=== PATIENT | female | born 1965 | race Caucasian/White ===

== ENCOUNTER 2018-06-25 00:18 | Inpatient (IN) | payer MEDICAID, OTHER ==
[2018-06-25] VITALS (7 sets, daily range): BP systolic 105–137; BP diastolic 59–70; PULSE 79–115; RESP 18; Ht 157.5 cm; Wt 65.8 kg
[~2018-06-25] VITALS: Ht 157.5 cm; Wt 65.8 kg
--- NOTE | 2018-06-25 00:37 | ERD ---
ER Documentation Chief Complaint Chief Complaint fever/cough/sore throat x 3 days HPI The patient is a 52-year-old female, presenting to the ER because of fever, cough, nasal congestion, nasal discharge, general body pain for the last 2-3 days. She denies headache, facial pain, neck pain, chest pain, dyspnea, complains of right upper quadrant pain, denies nausea, vomiting, dizzy, diarrhea. She does not smoke nor drink Past medical history: Diabetes mellitus, hypertension Past surgical history: Hysterectomy ROS All systems reviewed and are negative except as per history of present illness. Allergies Allergies: Coded Allergies: No Known Drug Allergies (Verified Allergy, Unknown, 06/25/18) Physical Exam Vitals Vital Signs Date Temp Pulse Resp B/P (MAP) Pulse Ox O2 O2 Flow FiO2 Time Delivery Rate 06/25/18 99.2 109 24 118/67 99 Room Air 02:51 (84) 06/25/18 116 14 142/66 Room Air 01:15 (91) 06/25/18 103.4 131 20 161/83 97 00:30 (109) Physical Exam Const: No acute distress. Head: Atraumatic. Eyes: Normal Conjunctiva. ENT: Normal External Ears, Nose and Mouth. Neck: Full range of motion. No meningismus. Resp: Clear to auscultation bilaterally.tachypneic Cardio: Regular tachycardic Abd: Soft, non distended, normal bowel sounds, mild right upper quadrant tenderness, no right lower quadrant, epigastric, rigidity, rebound or CVA tenderness Skin: No petechiae or rashes. Back: No midline or flank tenderness. Ext: No cyanosis, or edema. Neur: Awake and alert. No focal deficit Psych: Normal Mood and Affect. Result Diagram: 06/25/18 0050 06/25/18 0050 Results 24 hrs Laboratory Tests Test 06/25/18 00:48 06/25/18 00:50 06/25/18 00:52 06/25/18 01:01 Urine Color YELLOW Urine Clarity SLIGHTLY CLOUDY Urine pH 5.0 Urine Specific 1.023 [place] Urine Ketones 1+ mg/dL Urine Nitrite NEGATIVE mg/dL Urine Bilirubin NEGATIVE mg/dL Urine Urobilinogen NEGATIVE mg/dL Urine Leukocyte NEGATIVE Anmol/ul Esterase Urine Microscopic 1 /HPF RBC Urine Microscopic 1 /HPF WBC Urine Squamous FEW /HPF Epithelial Cells Urine Bacteria FEW /HPF Urine Hemoglobin 1+ mg/dL Urine Glucose 3+ mg/dL Urine Total NEGATIVE mg/dl Protein White Blood Count 12.1 10^3/ul Red Blood Count 4.97 10^6/ul Hemoglobin 12.7 g/dl Hematocrit 40.2 % Mean Corpuscular 80.9 fl Volume Mean Corpuscular 25.6 pg Hemoglobin Mean Corpuscular 31.6 g/dl Hemoglobin Concent Red Cell 14.6 % Distribution Width Platelet Count 171 10^3/UL Mean Platelet 13.0 fl Volume Immature 0.600 % Granulocytes % Neutrophils % 73.6 % Lymphocytes % 16.8 % Monocytes % 8.2 % Eosinophils % 0.6 % Basophils % 0.2 % Nucleated Red 0.0 /100WBC Blood Cells % Immature 0.070 10^3/ul Granulocytes # Neutrophils # 8.9 10^3/ul Lymphocytes # 2.0 10^3/ul Monocytes # 1.0 10^3/ul Eosinophils # 0.1 10^3/ul Basophils # 0.0 10^3/ul Nucleated Red 0.0 10^3/ul Blood Cells # Prothrombin Time 13.2 Sec Prothrombin Time 1.0 Ratio INR International 0.99 Normalized Ratio Activated 28.[address] Time Sodium Level 134 mmol/L Potassium Level 4.0 mmol/L Chloride Level 97 mmol/L Carbon Dioxide 23 mmol/L Level Anion Gap 14 Blood Urea 10 mg/dl Nitrogen Creatinine 0.48 mg/dl Est Glomerular > 60 mL/min Filtrat Rate mL/min Glucose Level 323 mg/dl Calcium Level 9.6 mg/dl Total Bilirubin 0.2 mg/dl Direct Bilirubin 0.00 mg/dl Indirect Bilirubin 0.2 mg/dl Aspartate Amino 50 IU/L Transf (AST/SGOT) Alanine 49 IU/L Aminotransferase ( ALT/SGPT) Alkaline 74 IU/L Phosphatase Troponin I < 0.012 ng/ml Total Protein 8.5 g/dl Albumin 4.6 g/dl Globulin 3.90 g/dl Albumin/Globulin 1.17 Ratio POC Venous Lactate 2.9 mmol/L Bedside Urine pH 6.0 (LAB) Bedside Urine 1+ Protein (LAB) Bedside Urine 0.50% Glucose (UA) Bedside Urine 2+ Ketones (LAB) Bedside Urine Trace-intact Blood Bedside Urine Negative Nitrite (LAB) Bedside Urine Negative Leukocyte Esterase (L Test 06/25/18 01:06 4/6/19 02:37 POC Beta HCG, NEGATIVE Qualitative POC Venous Lactate 2.8 mmol/L Current Medications Medications Dose Sig/[place] Start Time Status Last (Trade) Ordered Route PRN Stop Time Admin Dose Reason Admin Sodium 1,910 ml @ BOLUS X1 06/25/18 DC 06/25/18 Chloride 1,910 mls/hr ONCE IV 01:00 06/25/18 00:59 01:59 650 mg ONCE ONCE 06/25/18 DC 06/25/18 Acetaminophen PO 01:00 06/25/18 00:59 (Tylenol 01:01 Tab) Ibuprofen 600 mg ONCE ONCE 06/25/18 DC 06/25/18 (Motrin) PO 01:30 06/25/18 01:34 01:31 Ceftriaxone 50 ml @ ONCE ONCE 06/25/18 DC 06/25/18 Sodium 100 mls/hr IVPB 02:00 06/25/18 01:53 02:29 Oseltamivir 75 mg ONCE ONCE 06/25/18 DC 06/25/18 Phosphate PO 02:00 06/25/18 01:52 (Tamiflu) 02:01 Procedures/[place] [address] Radiology Main Line: [phone] DIAGNOSTIC IMAGING REPORT Patient: MARU BELTRAN : 1965 Age: 52 Sex: F MR #: [id number] DOS: 06/25/18 0103 Ordering MD: ZAYRA SILVA MD Location: E/R Room/Bed: PROCEDURE: US abdomen limited right upper quadrant. CLINICAL INDICATION: Abdominal pain TECHNIQUE: Multiple real-time images were acquired of the patient's right upper quadrant of the abdomen utilizing a high resolution transducer. COMPARISON: None FINDINGS: Gallbladder is mildly contracted. No gallstones are identified within the gallbladder. There is no pericholecystic fluid or gallbladder wall thickening. The common bile duct measures 2.7 mm in maximal dimension. No free fluid is identified. Diffuse increased hepatic echogenicity most suggestive of hepatic steatosis. The length of the liver equals 19.4 cm consistent with hepatomegaly. There is hepatopetal portal venous flow. No abnormality seen in the pancreatic head or body. Pancreatic tail is not well seen due to bowel gas. The right kidney measures 10.8 cm in length and is unremarkable. IMPRESSION: Diffuse increased hepatic echogenicity most suggestive of hepatic steatosis. The length of the liver equals 19.4 cm consistent with hepatomegaly. Pancreatic tail not well seen. The gallbladder is mildly contracted. This is nonspecific and could be due to nonfasting state. Please see above RPTAT: HJES .Mukesh Bryant MD, Date Time Electronically viewed and signed by .Mukesh Bryant MD, on 06/25/2018 02:21 .S/ CC: ZAYRA SILVA MD [id number] [place] [address] Radiology Main Line: [phone] DIAGNOSTIC IMAGING REPORT Patient: MARU BELTRAN : 1965 Age: 52 Sex: F MR #: [id number] DOS: 06/25/18 0037 Ordering MD: ZAYRA SILVA MD Location: E/R Room/Bed: PROCEDURE: One view chest radiograph. CLINICAL INDICATION: Sepsis TECHNIQUE: An AP view of the chest was obtained. COMPARISON: None. FINDINGS: Mediastinum: Unremarkable. Heart size: Normal. Pulmonary vasculature: No visible engorgement. Lungs: Clear. Lung volumes are low. Costophrenic sulci: Clear. Bony structures: Grossly unremarkable for age. IMPRESSION: 1. Unremarkable single view chest. RPTAT:AAJJ Physician Afia Date Time Electronically viewed and signed by Physician Afia on 06/25/2018 01:37 GW/ CC: ZAYRA SILVA MD [id number] EKG: Read by emergency physician Rate/Rhythm: Sinus tachycardia 125 beats/min QRS, ST, T-waves: No ST elevation, no T inversion, LAE Impression: Abnormal EKG MEDICAL MAKING DECISION: The patient is a 52-year-old female, presenting with acute severe sepsis, acute influenza, acute hyperglycemia. She was treated with Tylenol and Motrin for fever, normosaline 30 mm/kg IV, Rocephin 1 g IV for acute severe sepsis, Tamiflu 75 mg p.o. for acute influenza with good response. Her vital signs improved The differential diagnoses considered include but are not limited to influenza, pneumonia, UTI, pyelonephritis, dehydration, HHS, DKA MDM: Patient's infectious symptoms have not stabilized and the patient is at risk of rapid decompensation. The patient will be admitted for careful hydration, antibiotic therapy, and infectious source control. SEVERE SEPSIS CRITERIA: Infectious source: unknown End organ damage indicated by: [Lactate > 2.0 mmol/L SEPSIS MANAGEMENT Time of recognition of severe sepsis: 1:40 am 3 HOUR BUNDLE Blood cultures x 2 before broad-spectrum antibiotics: [Yes] 30 ml/kg NS bolus [Completed] Initial lactate []2.9 Repeat lactate Pending SEPTIC SHOCK ASSESSMENT: [No] lactic acid > 4.0 [No] Persistent hypotension (SBP < 90 or 40 mmHg drop, MAP < 65) despite 30 mL/kg IV fluid bolus CRITICAL CARE Critical care time [35] minutes Emergent fluid management while maintaining close respiratory support. Provision of immediate and broad-spectrum antibiotic therapy. Simultaneous assessment for possible sources in order to direct targeted therapy. Consideration for invasive and chemical support to prevent cardiopulmonary collapse. Critical care time is independent of procedures performed. Departure Diagnosis: Primary Impression: Severe sepsis Additional Impressions: Influenza A Hyperglycemia Hepatic steatosis Condition: Stable Comments I discussed the findings with the patient. I discussed the patient with the hospitalist Dr Hurley at 3 am who was made aware of the lab, the treatment, the patient condition. The patient is admitted to [facility] Disclaimer: Inadvertent spelling and grammatical errors are likely due to EHR/dictation software use and do not reflect on the overall quality of patient care. Also, please note that the electronic time recorded on this note does not necessarily reflect the actual time of the patient encounter. ZAYRA SILVA MD Jun 25, 2018 00:37
[2018-06-25] MEDS ORDERED: SOD CHLORIDE 0.9% 1,910 ML IV ONE (01:00)
[2018-06-25] MEDS ORDERED: ACETAMINOPHEN 325 MG TAB PO ONE (01:00)
[2018-06-25] MEDS ORDERED: IBUPROFEN 600 MG TAB PO ONE (01:30)
[2018-06-25] MEDS ORDERED: CEFTRIAXONE 1 GM/50 ML (PMX) 50 ML IVPB ONE (02:00)
[2018-06-25] MEDS ORDERED: OSELTAMIVIR 75 MG CAP PO ONE (02:00)
[2018-06-25] MEDS: SOD CHLORIDE 0.9% 1,000 ML IV SCH ×2 (03:28→16:05)
[2018-06-25] MEDS ORDERED: ACETAMINOPHEN 325 MG TAB PO PRN (03:30)
[2018-06-25] MEDS ORDERED: LEVALBUTEROL (NEB) 1.25 MG/0.5 ML AMP HHN PRN (03:30)
[2018-06-25] MEDS ORDERED: NACL 0.9% 3 ML SYG IV SCH (03:30)
[2018-06-25] MEDS ORDERED: DOCUSATE SODIUM 100 MG CAP PO PRN (03:30)
[2018-06-25] MEDS ORDERED: ONDANSETRON 4 MG INJ IV PRN (03:30)
[2018-06-25] MEDS ORDERED: GUAIFENESIN/DM 5ML CUP PO PRN (03:30)
[2018-06-25] MEDS ORDERED: BISACODYL (EC) 5 MG TAB PO PRN (03:30)
[2018-06-25] MEDS ORDERED: GLUCOSE GEL 15 GRAM TUBE PO PRN ×2 (04:30)
[2018-06-25] MEDS ORDERED: GLUCOSE GEL 15 GRAM TUBE BUCCAL PRN (04:30)
[2018-06-25] MEDS ORDERED: DEXTROSE 50% 50 ML SYRINGE IV PRN ×2 (04:30)
[2018-06-25] MEDS ORDERED: GLUCAGON 1 MG INJ IM PRN (04:30)
[2018-06-25] MEDS: OSELTAMIVIR 75 MG CAP PO SCH ×2 (08:23→20:05)
[2018-06-25] MEDS: INSULIN ASPART [NOVOLOG] 3 ML PEN SC SCH ×6 (09:49→20:14)
--- NOTE | 2018-06-25 09:59 | PN ---
Date/Time of Note Date/Time of Note DATE: 06/25/18 TIME: 09:58 Assessment/Plan VTE Prophylaxis Pharmacological prophylaxis: LMWH Lines/Catheters IV [facility]from [facility] [place] Assessment/Plan Hospital Course SUBJECTIVE: Continues to have generalized body aches and throat pain. OBJECTIVE: Physical Exam General: Adequately build 52 year-old female lying in bed in no apparent distress. HEENT: Normocephalic, atraumatic. Eyes: Anicteric sclerae, conjunctivae clear. ENT: Nasal septum midline, oral mucosa moist. Tongue midline. Neck supple, no JVD noticed. Respiratory: Bilaterally clear breath sounds. No use of accessory muscles of respiration. No adventitious breath sounds. Cardiovascular: S1, S2 heard. Regular rate and rhythm. Abdomen: Soft, nontender, and nondistended. Bowel sounds positive in all 4 quadrants. Genitourinary: Deferred. Extremities: No cyanosis, no clubbing, no edema. Peripheral pulses palpable. Neurologic: Cranial nerves II through XII grossly intact. The patient is awake, alert, and oriented. Skin: Normal skin turgor. No skin rashes. Labs & Vitals per chart ASSESSMENT & PLAN This is a 52-year-old female with past medical history of diabetes mellitus type 2, hypertension, and hypothyroidism. The patient started having febrile illness for the past 2 days. The patient verbalized exposure to her niece who was having similar illness. The patient was complaining of generalized body aches and sore throat. The patient denied any nausea, vomiting, or diarrhea. In the emergency room at [facility], the patient was noticed to have a fever of 103.4 F. Patient had minimal leukocytosis. The patient had underlying lactic acidosis. The patient's influenza A swab was positive. The patient was treated with IV ceftriaxone and oral Tamiflu in the emergency room along with IV fluid resuscitation. 1. Sepsis with leukocytosis, tachycardia, febrile illness, and lactic acidosis, present on admission. -Most probably secondary to underlying influenza A. -Continue neuraminidase inhibitors. -Continue droplet precautions. -Continue IV fluids. 2. Influenza A. -Management as per #1. 3. Diabetes mellitus type 2. -Continue the patient on sliding scale insulin along with pre-meal insulin and basal insulin. -Hemoglobin A1C 10.0. 4. Essential hypertension -Continue antihypertensives. 5. Hypothyroidism. -Resume Synthroid. 6. Fluids, electrolytes, and nutrition. -Carbohydrate controlled diet. 7. DVT prophylaxis. -Subcutaneous Lovenox. 8. Plan. -Continue Tamiflu. -Continue IV fluids. -Await clinical improvement. The patient was seen in collaboration with Dr. Gerard. Result Diagram: 06/25/18 0050 06/25/1849 Results 24hrs Laboratory Tests Test 06/25/18 00:48 06/25/18 00:50 06/25/18 00:52 06/25/18 01:01 Urine Color YELLOW Urine Clarity SLIGHTLY CLOUDY A Urine pH 5.0 Urine Specific 1.023 [place] Urine Ketones 1+ H Urine Nitrite NEGATIVE Urine Bilirubin NEGATIVE Urine NEGATIVE Urobilinogen Urine Leukocyte NEGATIVE Esterase Urine Microscopic 1 RBC Urine Microscopic 1 WBC Urine Squamous FEW Epithelial Cells Urine Bacteria FEW A Urine Hemoglobin 1+ H Urine Glucose 3+ H Urine Total NEGATIVE Protein White Blood Count 12.1 H Red Blood Count 4.97 Hemoglobin 12.7 Hematocrit 40.2 Mean Corpuscular 80.9 L Volume Mean Corpuscular 25.6 L Hemoglobin Mean Corpuscular 31.6 L Hemoglobin Concen t Red Cell 14.6 H Distribution Width Platelet Count 171 Mean Platelet 13.0 H Volume Immature 0.600 H Granulocytes % Neutrophils % 73.6 Lymphocytes % 16.8 Monocytes % 8.2 Eosinophils % 0.6 Basophils % 0.2 Nucleated Red 0.0 Blood Cells % Immature 0.070 H Granulocytes # Neutrophils # 8.9 H Lymphocytes # 2.0 Monocytes # 1.0 H Eosinophils # 0.1 Basophils # 0.0 Nucleated Red 0.0 Blood Cells # Prothrombin Time 13.2 Prothrombin Time 1.0 Ratio INR International 0.99 Normalized Ratio Activated 28.2 Partial Thrombopl ast Time Sodium Level 134 L Potassium Level 4.0 Chloride Level 97 Carbon Dioxide 23 Level Anion Gap 14 H Blood Urea 10 Nitrogen Creatinine 0.48 Est Glomerular > 60 Filtrat Rate mL/min Glucose Level 323 H Calcium Level 9.6 Total Bilirubin 0.2 Direct Bilirubin 0.00 Indirect 0.2 Bilirubin Aspartate Amino 50 H Transf (AST/SGOT) Alanine 49 Aminotransferase (ALT/SGPT) Alkaline 74 Phosphatase Troponin I < 0.012 Total Protein 8.5 H Albumin 4.6 Globulin 3.90 H Albumin/Globulin 1.17 Ratio POC Venous 2.9 *H Lactate Bedside Urine pH 6.0 (LAB) Bedside Urine 1+ H Protein (LAB) Bedside Urine 0.50% H Glucose (UA) Bedside Urine 2+ H Ketones (LAB) Bedside Urine Trace-intact H Blood Bedside Urine Negative Nitrite (LAB) Bedside Urine Negative Leukocyte Esteras e (L Test 06/25/18 01:06 06/25/18 02:37 06/25/18 07:53 06/25/18 08:02 POC Beta HCG, NEGATIVE Qualitative POC Venous 2.8 *H Lactate Lactic Acid Level 2.2 *H Bedside Glucose 215 Exam/Review of Systems Exam Vitals Vital Signs Date Temp Pulse Resp B/P (MAP) Pulse Ox O2 O2 Flow FiO2 Time Delivery Rate 06/25/18 85 08:09 06/25/18 98.0 18 124/70 96 Room Air 07:45 (88) Results Results 24hrs Laboratory Tests Test 06/25/18 00:48 06/25/18 00:50 06/25/18 00:52 06/25/18 01:01 Urine Color YELLOW Urine Clarity SLIGHTLY CLOUDY A Urine pH 5.0 Urine Specific 1.023 [place] Urine Ketones 1+ H Urine Nitrite NEGATIVE Urine Bilirubin NEGATIVE Urine NEGATIVE Urobilinogen Urine Leukocyte NEGATIVE Esterase Urine Microscopic 1 RBC Urine Microscopic 1 WBC Urine Squamous FEW Epithelial Cells Urine Bacteria FEW A Urine Hemoglobin 1+ H Urine Glucose 3+ H Urine Total NEGATIVE Protein White Blood Count 12.1 H Red Blood Count 4.97 Hemoglobin 12.7 Hematocrit 40.2 Mean Corpuscular 80.9 L Volume Mean Corpuscular 25.6 L Hemoglobin Mean Corpuscular 31.6 L Hemoglobin Concen t Red Cell 14.6 H Distribution Width Platelet Count 171 Mean Platelet 13.0 H Volume Immature 0.600 H Granulocytes % Neutrophils % 73.6 Lymphocytes % 16.8 Monocytes % 8.2 Eosinophils % 0.6 Basophils % 0.2 Nucleated Red 0.0 Blood Cells % Immature 0.070 H Granulocytes # Neutrophils # 8.9 H Lymphocytes # 2.0 Monocytes # 1.0 H Eosinophils # 0.1 Basophils # 0.0 Nucleated Red 0.0 Blood Cells # Prothrombin Time 13.2 Prothrombin Time 1.0 Ratio INR International 0.99 Normalized Ratio Activated 28.2 Partial Thrombopl ast Time Sodium Level 134 L Potassium Level 4.0 Chloride Level 97 Carbon Dioxide 23 Level Anion Gap 14 H Blood Urea 10 Nitrogen Creatinine 0.48 Est Glomerular > 60 Filtrat Rate mL/min Glucose Level 323 H Calcium Level 9.6 Total Bilirubin 0.2 Direct Bilirubin 0.00 Indirect 0.2 Bilirubin Aspartate Amino 50 H Transf (AST/SGOT) Alanine 49 Aminotransferase (ALT/SGPT) Alkaline 74 Phosphatase Troponin I < 0.012 Total Protein 8.5 H Albumin 4.6 Globulin 3.90 H Albumin/Globulin 1.17 Ratio POC Venous 2.9 *H Lactate Bedside Urine pH 6.0 (LAB) Bedside Urine 1+ H Protein (LAB) Bedside Urine 0.50% H Glucose (UA) Bedside Urine 2+ H Ketones (LAB) Bedside Urine Trace-intact H Blood Bedside Urine Negative Nitrite (LAB) Bedside Urine Negative Leukocyte Esteras e (L Test 06/25/18 01:06 06/25/18 02:37 06/25/18 07:53 06/25/18 08:02 POC Beta HCG, NEGATIVE Qualitative POC Venous 2.8 *H Lactate Lactic Acid Level 2.2 *H Bedside Glucose 215 Medications Medication Current Medications Oseltamivir Phosphate (Tamiflu) 75 mg BID PO Last administered on 06/25/18at 08:23; Admin Dose 75 MG; Start 06/25/18 at 09:00; Stop 06/30/18 at 08:59 Sodium Chloride 1,000 ml @ 80 mls/hr [id number] IV Last administered on 06/25/18at 03:28; Admin Dose 80 MLS/HR; Start 06/25/18 at 03:03; Stop 06/26/18 at 03:02 IV Flush (NS 3 ml) 3 ml PER PROTOCOL IV ; Start 06/25/18 at 03:30 Ondansetron HCl (Zofran Inj) 4 mg Q6H PRN IV NAUSEA/VOMITING; Start 06/25/18 at 03:30 Acetaminophen (Tylenol Tab) 650 mg Q6H PRN PO .PAIN 1-3 OR TEMP; Start 06/25/18 at 03:30 Docusate Sodium (Colace) 100 mg Q12H PRN PO .CONSTIPATION; Start 06/25/18 at 03:30 Bisacodyl (Dulcolax) 5 mg DAILY PRN PO .CONSTIPATION; Start 06/25/18 at 03:30 Levalbuterol (Xopenex Neb) 1.25 mg Q4H RESP THERAPY PRN HHN COUGH; Start 06/25/18 at 03:30 Guaifenesin/ Dextromethorphan (Robitussin Dm Liquid Cup) 5 ml Q4H PRN PO COUGH; Start 06/25/18 at 03:30 Diagnostic Test (Pha) (Accu-Chek) 1 ea 02 XX ; Start 06/26/18 at 02:00 Insulin Aspart (Novolog Insulin Pen) NOVOLOG *MILD* ALGORITHM WITH MEALS BEDTIME SC ; Start 06/25/18 at 07:55 Miscellaneous Information 1 ea NOTE XX ; Start 06/25/18 at 04:30 Glucose (Glutose) 15 gm Q15M PRN PO DECREASED GLUCOSE; Start 06/25/18 at 04:30 Glucose (Glutose) 22.5 gm Q15M PRN PO DECREASED GLUCOSE; Start 06/25/18 at 04:30 Dextrose (D50w Syringe) 25 ml Q15M PRN IV DECREASED GLUCOSE; Start 06/25/18 at 04:30 Dextrose (D50w Syringe) 50 ml Q15M PRN IV DECREASED GLUCOSE; Start 06/25/18 at 04:30 Glucagon (Glucagen) 1 mg Q15M PRN IM DECREASED GLUCOSE; Start 06/25/18 at 04:30 Glucose (Glutose) 15 gm Q15M PRN BUCCAL DECREASED GLUCOSE; Start 06/25/18 at 04:30 LEXI BRENNER NP Jun 25, 2018 09:59
--- NOTE | 2018-06-25 10:09 | HP ---
Date/Time of Note Date/Time of Note DATE: 06/25/18 TIME: 10:03 Assessment/Plan VTE Prophylaxis SCD applied (from Nsg): Yes Pharmacological prophylaxis: NA/contraindicated Pharm contraindication: low risk/ambulating Lines/Catheters IV Catheter Type (from Nrsg): Saline Lock Assessment/Plan Hospital Course This is a 52-year-old female being admitted to the telemetry floor for: #1 severe sepsis: Secondary to underlying influenza. Initial lactic acid 2.9 will trend. IV fluid hydration with normal saline. Patient has been initiated on Tamiflu will continue Tamiflu 75 mg twice daily for 5 days. Will await culture results and monitor for any underlying superimposed infections. #2 influenza A: Patient has been initiated on Tamiflu, further management as per #1. Supportive care, antitussives, PRN nebulizers #3 diabetes mellitus: We will check hemoglobin A1c, initiate insulin sliding scale, will need to confirm patient's home medications and initiate insulin if indicated. Carbohydrate #4 essential hypertension: We will need to confirm patient's home medications, monitor patient's blood pressures. PRN hydralazine if indicated #5 hypothyroidism: Check TSH level, again we will need to confirm patient's home medication and dosage. #7 DVT GI prophylaxis: SCDs, no GI prophylaxis indicated Further treatment strategy will be implemented as per the clinical course Result Diagram: 06/25/184906/25/1849 Results 24hrs Laboratory Tests Test 06/25/18 00:48 06/25/18 00:50 06/25/18 00:52 06/25/18 01:01 Urine Color YELLOW Urine Clarity SLIGHTLY CLOUDY A Urine pH 5.0 Urine Specific 1.023 [place] Urine Ketones 1+ H Urine Nitrite NEGATIVE Urine Bilirubin NEGATIVE Urine NEGATIVE Urobilinogen Urine Leukocyte NEGATIVE Esterase Urine Microscopic 1 RBC Urine Microscopic 1 WBC Urine Squamous FEW Epithelial Cells Urine Bacteria FEW A Urine Hemoglobin 1+ H Urine Glucose 3+ H Urine Total NEGATIVE Protein White Blood Count 12.1 H Red Blood Count 4.97 Hemoglobin 12.7 Hematocrit 40.2 Mean Corpuscular 80.9 L Volume Mean Corpuscular 25.6 L Hemoglobin Mean Corpuscular 31.6 L Hemoglobin Concen t Red Cell 14.6 H Distribution Width Platelet Count 171 Mean Platelet 13.0 H Volume Immature 0.600 H Granulocytes % Neutrophils % 73.6 Lymphocytes % 16.8 Monocytes % 8.2 Eosinophils % 0.6 Basophils % 0.2 Nucleated Red 0.0 Blood Cells % Immature 0.070 H Granulocytes # Neutrophils # 8.9 H Lymphocytes # 2.0 Monocytes # 1.0 H Eosinophils # 0.1 Basophils # 0.0 Nucleated Red 0.0 Blood Cells # Prothrombin Time 13.2 Prothrombin Time 1.0 Ratio INR International 0.99 Normalized Ratio Activated 28.2 Partial Thrombopl ast Time Sodium Level 134 L Potassium Level 4.0 Chloride Level 97 Carbon Dioxide 23 Level Anion Gap 14 H Blood Urea 10 Nitrogen Creatinine 0.48 Est Glomerular > 60 Filtrat Rate mL/min Glucose Level 323 H Calcium Level 9.6 Total Bilirubin 0.2 Direct Bilirubin 0.00 Indirect 0.2 Bilirubin Aspartate Amino 50 H Transf (AST/SGOT) Alanine 49 Aminotransferase (ALT/SGPT) Alkaline 74 Phosphatase Troponin I < 0.012 Total Protein 8.5 H Albumin 4.6 Globulin 3.90 H Albumin/Globulin 1.17 Ratio POC Venous 2.9 *H Lactate Bedside Urine pH 6.0 (LAB) Bedside Urine 1+ H Protein (LAB) Bedside Urine 0.50% H Glucose (UA) Bedside Urine 2+ H Ketones (LAB) Bedside Urine Trace-intact H Blood Bedside Urine Negative Nitrite (LAB) Bedside Urine Negative Leukocyte Esteras e (L Test 06/25/18 01:06 06/25/18 02:37 06/25/18 07:53 06/25/18 08:02 POC Beta HCG, NEGATIVE Qualitative POC Venous 2.8 *H Lactate Lactic Acid Level 2.2 *H Bedside Glucose 215 HPI/ROS Admit Date/Time Admit Date/Time Jun 25, 2018 at 03:02 Hx of Present Illness Chief complaint: Cough nasal congestion fever times 3 days This is a 52-year-old female who presented to the emergency department with fe ray cough and nasal congestion times 3 days. Patient also complains of body aches. She had children at home that were sick as well. She denies any headaches or nausea or vomiting. She was diagnosed with influenza in the emergency department along with sepsis secondary to her tachycardia as well as elevated fever. Allergies: NKDA Medications: See May Const: As per HPI Eyes : No pain discharge or redness or change in visual acuity ENT: No pain, sore throat, congestion, congestion, dysphagia or discharge Respiratory: As per HPI Cardiovascular: No chest pain, palpitation, PND, or edema GI : no change in appetite, abdominal pain, nausea, vomiting, diarrhea, constipation, or change in the color his stool Genitourinary: No dysuria, hematuria, flank pain , discharge or CVA tenderness Musculoskeletal: As per HPI Skin: No rash, bruising or hives Neuro: No headache, dizziness, syncope, seizure, focal weakness Endocrine: No polyuria, polydipsia, temperature intolerance Psych: No hallucination, depression, anxiety or suicidal ideation PMH/Family/Social Past Medical History Diabetes mellitus, hypothyroidism, hypertension Medications Current Medications Oseltamivir Phosphate (Tamiflu) 75 mg BID PO Last administered on 06/25/18at 08:23; Admin Dose 75 MG; Start 06/25/18 at 09:00; Stop 06/30/18 at 08:59 Sodium Chloride 1,000 ml @ 80 mls/hr [id number] IV Last administered on 06/25/18at 03:28; Admin Dose 80 MLS/HR; Start 06/25/18 at 03:03; Stop 06/26/18 at 03:02 IV Flush (NS 3 ml) 3 ml PER PROTOCOL IV ; Start 06/25/18 at 03:30 Ondansetron HCl (Zofran Inj) 4 mg Q6H PRN IV NAUSEA/VOMITING; Start 06/25/18 at 03:30 Acetaminophen (Tylenol Tab) 650 mg Q6H PRN PO .PAIN 1-3 OR TEMP; Start 06/25/18 at 03:30 Docusate Sodium (Colace) 100 mg Q12H PRN PO .CONSTIPATION; Start 06/25/18 at 03:30 Bisacodyl (Dulcolax) 5 mg DAILY PRN PO .CONSTIPATION; Start 06/25/18 at 03:30 Levalbuterol (Xopenex Neb) 1.25 mg Q4H RESP THERAPY PRN HHN COUGH; Start 06/25/18 at 03:30 Guaifenesin/ Dextromethorphan (Robitussin Dm Liquid Cup) 5 ml Q4H PRN PO COUGH; Start 06/25/18 at 03:30 Diagnostic Test (Pha) (Accu-Chek) 1 ea 02 XX ; Start 06/26/18 at 02:00 Insulin Aspart (Novolog Insulin Pen) NOVOLOG *MILD* ALGORITHM WITH MEALS BEDTIME SC Last administered on 06/25/18at 09:49; Admin Dose 2 UNIT; Start 06/25/18 at 07:55 Miscellaneous Information 1 ea NOTE XX ; Start 06/25/18 at 04:30 Glucose (Glutose) 15 gm Q15M PRN PO DECREASED GLUCOSE; Start 06/25/18 at 04:30 Glucose (Glutose) 22.5 gm Q15M PRN PO DECREASED GLUCOSE; Start 06/25/18 at 04:30 Dextrose (D50w Syringe) 25 ml Q15M PRN IV DECREASED GLUCOSE; Start 06/25/18 at 04:30 Dextrose (D50w Syringe) 50 ml Q15M PRN IV DECREASED GLUCOSE; Start 06/25/18 at 04:30 Glucagon (Glucagen) 1 mg Q15M PRN IM DECREASED GLUCOSE; Start 06/25/18 at 04:30 Glucose (Glutose) 15 gm Q15M PRN BUCCAL DECREASED GLUCOSE; Start 06/25/18 at 04:30 Levothyroxine Sodium (Synthroid) 50 mcg DAILY@06 PO ; Start 06/26/18 at 06:00; Status UNV Insulin Glargine (Lantus) 10 units DAILY@2000 SC ; Start 06/25/18 at 20:00; Status UNV Insulin Aspart (Novolog Insulin Pen) 3 unit WITH MEALS SC ; Start 06/25/18 at 11:50; Status UNV Miscellaneous Information (* Miscellaneous Pharmacy Order) Discontinue all previ... ONCE ONCE XX ; Start 06/25/18 at 10:00; Stop 06/25/18 at 10:01; Status UNV Enoxaparin Sodium (Lovenox) 40 mg DAILY SC ; Start 06/25/18 at 10:00; Status UNV Lisinopril (Zestril) 5 mg DAILY PO ; Start 06/26/18 at 09:00; Status UNV Coded Allergies: No Known Drug Allergies (Verified Allergy, Unknown, 06/25/18) Past Surgical History x3 Family History Significant Family History: no pertinent family hx Social History Alcohol Use: none Smoking Status: Never smoker Drug Use: none Exam/Review of Systems Vital Signs Vitals Vital Signs Date Temp Pulse Resp B/P (MAP) Pulse Ox O2 O2 Flow FiO2 Time Delivery Rate 06/25/18 85 08:09 06/25/18 98.0 18 124/70 96 Room Air 07:45 (88) Exam Exam General: Patient is a pleasant female, she does appear ill HEENT: Atraumatic, normocephalic. The pupils are equal, round and reactive. Extraocular motor are intact Neck: Supple with full range of motion. No rigidity or meningismus Chest: Nontender Lungs: Clear to auscultation bilaterally no crackles rales or wheezing Heart: Sinus tachycardia Abdomen: Soft , nontender, nondistended , bowel sounds are present. No guarding no rebound tenderness , No masses or organomegaly. No costovertebral temporal angle mass Extremities: Normal to inspection, no edema no cyanosis Neurologic: Normal mental status, speech normal, cranial nerves II through XII are intact, motor and sensory are intact, Skin: Diaphoretic, warm to touch SHLOMO LYLES Jun 25, 2018 10:09
[2018-06-25] MEDS: ENOXAPARIN 40 MG/0.4 ML SYG SC SCH (11:20)
[2018-06-25] MEDS ORDERED: INSULIN GLARGINE [LANTus] (100 UNITS/ML) SYG SC SCH (20:00)
[2018-06-26] VITALS: PULSE 79
[2018-06-26 00:04] VITALS: BP 115/62; PULSE 88; RESP 18
[2018-06-26] MEDS ORDERED: ACCU-CHEK XX SCH (02:00)
[2018-06-26 04:00] VITALS: BP 108/64; PULSE 77; PULSE 80; RESP 18
[2018-06-26] MEDS ORDERED: LEVOTHYROXINE 50 MCG TAB PO SCH (06:00)
[2018-06-26 07:42] VITALS: BP 115/73; PULSE 75; RESP 18
[2018-06-26 08:00] VITALS: PULSE 71
[2018-06-26] MEDS: OSELTAMIVIR 75 MG CAP PO SCH (08:01)
[2018-06-26] MEDS: ENOXAPARIN 40 MG/0.4 ML SYG SC SCH (08:07)
[2018-06-26] MEDS: INSULIN ASPART [NOVOLOG] 3 ML PEN SC SCH ×2 (08:07)
[2018-06-26] MEDS ORDERED: LISINOPRIL 5 MG TAB PO SCH (09:00)
[2018-06-26] MEDS ORDERED: OSEL75CA16 PO (09:08)
[2018-06-26] MEDS ORDERED: GLIP5TAB13 PO (09:08)
[2018-06-26] MEDS ORDERED: MTF1000T PO (09:08)
--- NOTE | 2018-06-26 09:11 | PDOCDIS ---
Discharge Instructions CONDITION [id number] Patient Condition: [id number] Stable HOME CARE INSTRUCTIONS: [id number] Diet Instructions: [id number] Low Fat /Cholesterol [id number] Special Diet: [id number] Carbohydrate controlled FOLLOW UP/APPOINTMENTS Follow-up Plan Follow-up with your primary care physician in 2 weeks. OTHER ORDERS: Other Orders: 1. Resume home medications. 2. Complete the course of Tamiflu. 3. Follow a low-cholesterol, low carbohydrate diet. 4. Resume activities as tolerated. 5. Follow-up with your primary care physician in 2 weeks. 6. Please go to the nearest emergency room if you have persistent fevers, worsening symptoms of body aches, or any other unusual signs/symptoms. 1. Reanudar los medicamentos caseros. 2. Completar el curso de Tamiflu. 3. Siga loree dieta baja en colesterol y baja en carbohidratos. 4. Reanudar las actividades segn lo tolerado. 5. Ephraim un seguimiento con way mdico de atencin primaria en 2 semanas. 6. Vaya a la jayme de emergencias ms cercana si tiene fiebre persistente, empeoramiento de los sntomas del dolor corporal o cualquier otro signo / sntoma inusual. LEXI BRENNER NP Jun 26, 2018 09:11
--- NOTE | 2018-06-26 09:16 | DS ---
Date/Time of Note Date/Time of Note DATE: 06/26/18 TIME: 09:14 Discharge Summary Admission/Discharge Info Admit Date/Time Jun 25, 2018 at 04:24 Discharge Date/Time Discharge Diagnosis 1. Sepsis with leukocytosis, tachycardia, febrile illness, and lactic acidosis, present on admission. 2. Influenza A. 3. Diabetes mellitus type 2. Hemoglobin A1C 10.0. 4. Essential hypertension 5. Hypothyroidism. Patient Condition: Stable Procedures CXR IMPRESSION: 1. Unremarkable single view chest. Gallbladder Ultrasound IMPRESSION: Diffuse increased hepatic echogenicity most suggestive of hepatic steatosis. The length of the liver equals 19.4 cm consistent with hepatomegaly. Pancreatic tail not well seen. The gallbladder is mildly contracted. This is nonspecific and could be due to nonfasting state. Hx of Present Illness This is a 52-year-old female with past medical history of diabetes mellitus type 2, hypertension, and hypothyroidism. The patient started having febrile illness for the past 2 days. The patient verbalized exposure to her niece who was having similar illness. The patient was complaining of generalized body aches and sore throat. The patient denied any nausea, vom iting, or diarrhea. In the emergency room at [facility], the patient was noticed to have a fever of 103.4 F. Patient had minimal leukocytosis. The patient had underlying lactic acidosis. The patient's influenza A swab was positive. The patient was treated with IV ceftriaxone and oral Tamiflu in the emergency room along with IV fluid resuscitation. Hospital Course The patient had evidence of underlying sepsis with leukocytosis, tachycardia, febrile illness, and lactic acidosis, present on admission. The patient's influenza A swab was positive. The patient was started on Tamiflu. The patient was maintained on droplet precautions. The patient's other cultures remained negative. The patient had a negative chest x-ray. Therefore, it was concluded that the patient sepsis could have been secondary to her underlying influenza A. The patient responded well to therapy with Tamiflu. The patient did not have any evidence of any septic shock. The patient was maintained on IV fluids. The patient's chronic problems include diabetes mellitus type 2. The patient's hemoglobin A1c was found to be 10.0. She was maintained on sliding scale insulin along with pre-meal insulin and basal insulin. At home the patient is on metformin and glipizide. The patient was not leaning towards taking any insulin at home. The patient has outpatient follow-up for her diabetes. The patient also has reported history of essential hypertension. The patient's blood pressure was well-controlled throughout the hospital course. The patient is not on any antihypertensives at home. The patient has underlying hypothyroidism. The patient was continued on Synthroid for the same. The patient had a stable hospital course. The patient is stable to be discharged home, to complete course of Tamiflu. Discharge Instructions 1. Resume home medications. 2. Complete the course of Tamiflu. 3. Follow a low-cholesterol, low carbohydrate diet. 4. Resume activities as tolerated. 5. Follow-up with your primary care physician in 2 weeks. 6. Please go to the nearest emergency room if you have persistent fevers, w orsening symptoms of body aches, or any other unusual signs/symptoms. The patient verbalized understanding of her discharge instructions. The patient was seen in collaboration with Dr. Gerard. Home Meds Active Scripts Glipizide* (Glipizide*) 5 Mg Tablet, 5 MG PO BID for 30 Days, TAB Patient already has supplies with her. Prov:LEXI BRENNER NP 06/26/18 Metformin* (Glucophage*) 1,000 Mg Tablet, 1000 MG PO BID, #60 TAB Patient already has supplies with her. Prov:LEXI BRENNER NP 06/26/18 Oseltamivir Phosphate (Oseltamivir Phosphate) 75 Mg Capsule, 75 MG PO BID, #7 CAP Already received 3 doses. Prov:LEXI BRENNER NP 06/26/18 Follow-up Plan Follow-up with your primary care physician in 2 weeks. Primary Care Provider Care Physician No Primary Time spent on discharge: > 30 minutes Pending Labs RUN DATE: 06/25/18 [facility] PAGE 1 RUN TIME: [id number] [place] [address] Campos Carter M.D. Wildlife Conservationist Leela Pierson M.D. Co-Wildlife Conservationist ALBERTO#: [id number] Name: MARU BELTRAN Age/Sex: 52/F Attend Dr: ZAYRA SILVA MD Acct: [id number] MR# : [id number] : 1965 Location: E/R Admit: 06/25/18 Specimen: [id number] Status: Complete Mary Ann: 06/25/18 Rcvd: 06/25/18 Source: VAIBHAV Sp Descrip: Procedure Result ----- Microbiology INFLUENZA A & B BY EIA Final INFLU A&B BY EIA INFLUENZA A POSITIVE (Ref Range Neg) INFLUENZA B NEGATIVE (Ref Range Neg) Phoned to [email or web address] 06/25/18 BY BLE .. .......................................................................................... Flags: Critical Hi = *H Critical Lo = *L Microbiology Abnormal = * Abnormal Hi = H Abnormal Lo = L Blood Bank Abnormal = * Susceptability Flags: S = Sensitive R = Resistant I = Intermediate END OF REPORT Laboratory Tests Test 06/25/18 10:49 06/25/18 12:24 06/25/18 17:11 06/25/18 20:03 White Blood 10.1 Count 10^3/ul (4.8-10 .8) Red Blood 4.61 Count 10^6/ul (4.20-5 .40) Hemoglobin 11.8 g/dl (12.0-16.0 ) Hematocrit 38.0 % (37.0-47.0) Mean 82.4 Corpuscular fl (82.0-101.0) Volume Mean 25.6 Corpuscular pg (29.0-33.0) Hemoglobin Mean 31.1 Corpuscular g/dl (32.0-37.0 Hemoglobin Conc ) ent Red Cell 14.9 Distribution % (11.5-14.5) Width Platelet Count 159 10^3/UL (140-41 5) Mean Platelet 12.8 Volume fl (7.4-10.4) Immature 0.500 Granulocytes % % (0.001-0.429) Neutrophils % 70.2 % (39.0-77.0) Lymphocytes % 18.5 % (15.0-51.0) Monocytes % 10.2 % (0.0-11.0) Eosinophils % 0.4 % (0.0-7.0) Basophils % 0.2 % (0.0-2.0) Nucleated Red 0.0 Blood Cells % /100WBC (0.0-0. 0) Immature 0.050 Granulocytes # 10^3/ul (0.0-0. 031) Neutrophils # 7.1 10^3/ul (1.6-7. 5) Lymphocytes # 1.9 10^3/ul (0.8-2. 9) Monocytes # 1.0 10^3/ul (0.3-0. 9) Eosinophils # 0.0 10^3/ul (0.0-0. 5) Basophils # 0.0 10^3/ul (0.0-0. 1) Nucleated Red 0.0 Blood Cells # 10^3/ul (0.0-0. 0) Sodium Level 138 mmol/L (135-144 ) Potassium 4.1 Level mmol/L (3.5-5.1 ) Chloride Level 105 mmol/L (97-110) Carbon Dioxide 23 Level mmol/L (21-31) Anion Gap 10 (5-13) Blood Urea 8 mg/dl (7-20) Nitrogen Creatinine 0.38 mg/dl (0.44-1.0 0) Est Glomerular > 60 Filtrat mL/min (>60) Rate mL/min Glucose Level 243 mg/dl (70-220) Hemoglobin A1c 10.0 % (0-5.9) Lactic Acid 2.4 Level mmol/L (0.5-2.0 ) Calcium Level 8.4 mg/dl (8.4-10.2 ) Magnesium 1.8 Level mg/dl (1.7-2.5) Total 0.3 Bilirubin mg/dl (0.2-1.3) Direct 0.00 Bilirubin mg/dl (0.00-0.2 0) Indirect 0.3 Bilirubin mg/dl (0-1.1) Aspartate Amino 32 IU/L (15-46) Transf (AST/SGO T) Alanine 40 IU/L (13-69) Aminotransferas e (ALT/SGPT) Alkaline 58 Phosphatase IU/L (42-121) Total Protein 7.4 g/dl (6.1-8.1) Albumin 3.8 g/dl (3.3-4.9) Globulin 3.60 g/dl (1.3-3.2) Albumin/Globuli 1.05 n Ratio Bedside 226 216 255 Glucose mg/dL (70-220) mg/dL (70-220) mg/dL (70-220) Test 06/26/18 01:42 06/26/18 06:03 06/26/18 07:59 Bedside 259 227 Glucose mg/dL (70-220) mg/dL (70-220) White Blood 6.0 Count 10^3/ul (4.8-1 0.8) Red Blood 4.50 Count 10^6/ul (4.20- 5.40) Hemoglobin 11.4 g/dl (12.0-16. 0) Hematocrit 37.1 % (37.0-47.0) Mean 82.4 Corpuscular fl (82.0-101.0 Volume ) Mean 25.3 Corpuscular pg (29.0-33.0) Hemoglobin Mean 30.7 Corpuscular g/dl (32.0-37. Hemoglobin Conc 0) ent Red Cell 14.8 Distribution % (11.5-14.5) Width Platelet Count 159 10^3/UL (140-4 15) Mean Platelet 12.9 Volume fl (7.4-10.4) Immature 0.200 Granulocytes % % (0.001-0.429 ) Neutrophils % 46.2 % (39.0-77.0) Lymphocytes % 39.5 % (15.0-51.0) Monocytes % 11.6 % (0.0-11.0) Eosinophils % 2.2 % (0.0-7.0) Basophils % 0.3 % (0.0-2.0) Nucleated Red 0.0 Blood Cells % /100WBC (0.0-0 .0) Immature 0.010 Granulocytes # 10^3/ul (0.0-0 .031) Neutrophils # 2.8 10^3/ul (1.6-7 .5) Lymphocytes # 2.4 10^3/ul (0.8-2 .9) Monocytes # 0.7 10^3/ul (0.3-0 .9) Eosinophils # 0.1 10^3/ul (0.0-0 .5) Basophils # 0.0 10^3/ul (0.0-0 .1) Nucleated Red 0.0 Blood Cells # 10^3/ul (0.0-0 .0) Sodium Level 136 mmol/L (135-14 4) Potassium 3.9 Level mmol/L (3.5-5. 1) Chloride Level 101 mmol/L (97-110 ) Carbon Dioxide 24 Level mmol/L (21-31) Anion Gap 11 (5-13) Blood Urea 6 mg/dl (7-20) Nitrogen Creatinine 0.37 mg/dl (0.44-1. 00) Est Glomerular > 60 Filtrat mL/min (>60) Rate mL/min Glucose Level 244 mg/dl (70-220) Calcium Level 8.6 mg/dl (8.4-10. 2) Magnesium 1.9 Level mg/dl (1.7-2.5 ) Iron Level 29 ug/dl (35-150) Total Iron 353 Binding ug/dl (241-421 Capacity ) Percent Iron 8 % Saturation SAT (22-52) Ferritin 24.6 ng/ml (11.1-26 4.0) Total 0.2 Bilirubin mg/dl (0.2-1.3 ) Direct 0.00 Bilirubin mg/dl (0.00-0. 20) Indirect 0.2 Bilirubin mg/dl (0-1.1) Aspartate Amino 36 Transf (AST/SGO IU/L (15-46) T) Alanine 35 Aminotransferas IU/L (13-69) e (ALT/SGPT) Alkaline 56 Phosphatase IU/L (42-121) Total Protein 7.2 g/dl (6.1-8.1) Albumin 3.8 g/dl (3.3-4.9) Globulin 3.40 g/dl (1.3-3.2) Albumin/Globuli 1.11 n Ratio Triglycerides 203 Level mg/dl (0-149) Cholesterol 164 Level mg/dl (100-200 ) LDL 94 mg/dl Cholesterol, Calculated HDL 29 Cholesterol mg/dl (37-92) Cholesterol/HDL 5.6 RATIO Ratio Thyroid 3.490 Stimulating MIU/L (0.465-4 Hormone (TSH) .680) LEXI BRENNER NP Jun 26, 2018 09:16
[2018-06-26] MEDS ORDERED: INSULIN ASPART [NOVOLOG] 3 ML PEN SC SCH (11:50)
[2018-06-26] MEDS ORDERED: INSULIN GLARGINE [LANTus] (100 UNITS/ML) SYG SC SCH (20:00)
== END 2018-06-26 11:25 | disposition home or self-care (01) | DRG 872 ==
LOC: E/R 00:18 → TEL 03:02 → OBSVTOIN 04:24
PROVIDERS: ADMIT Family Medicine; ATTEND Family Medicine
DX: A41.9 Sepsis, unspecified organism (principal); E87.2 Acidosis; J10.1 Influenza due to other identified influenza virus with other respiratory manifestations; E11.65 Type 2 diabetes mellitus with hyperglycemia; I10 Essential (primary) hypertension; E03.9 Hypothyroidism, unspecified; Z79.4 Long term (current) use of insulin; Z90.710 Acquired absence of both cervix and uterus; R65.20 Severe sepsis without septic shock
CPT/HCPCS: 36415; 71045; 76705; 80053; 80061; 81001; 81003; 81025; 82728; 82962; 83036; 83540; 83605; 83735; 84443; 84484; 85025; 85610; 85730; 87086; 87400; 93005; 96374; G0378; J0696; J1650; J1815; J7030